=== PATIENT | male | born 1990 | race Two or more races ===

== ENCOUNTER 2017-08-16 22:57 | Emergency (ER) | payer SELFPAY ==
[~2017-08-16] VITALS: Ht 165.1 cm; Wt 81.6 kg
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
--- NOTE | 2017-08-17 00:45 | NUR ---
Patient discharged to home in stable condition. Written and verbal after care instructions given. Patient verbalizes understanding of instruction. Patient is ambulatory. Will be waiting for taxi for transportation.
[2017-08-17 00:47] VITALS: BP 132/81
== END 2017-08-17 00:48 | disposition home or self-care (01) ==
LOC: ER 22:59
DX: R51 Headache (principal); J34.89 Other specified disorders of nose and nasal sinuses; F17.200 Nicotine dependence, unspecified, uncomplicated; W22.8XXA Striking against or struck by other objects, initial encounter; Y93.89 Activity, other specified; Y92.89 Other specified places as the place of occurrence of the external cause; Y99.9 Unspecified external cause status
CPT/HCPCS: 70450; 70486; 99284; A4606; Z7610